=== PATIENT | male | born 1955 ===

== ENCOUNTER 2017-10-16 11:13 | Emergency (ER) | payer SELFPAY ==
[2017-10-16 11:28] VITALS: BP 167/102; PULSE 90; RESP 18; TEMP 98.6; O2SAT 99
== END 2017-10-16 12:18 | disposition left against medical advice (07) ==
LOC: H.ER 11:13
DX: Z02.89 Encounter for other administrative examinations (principal)

== ENCOUNTER 2017-10-16 16:18 | Emergency (ER) | payer OTHER ==
[2017-10-16 16:28] VITALS: TEMP 98.3
--- NOTE | 2017-10-16 17:35 | ED PDOC ---
Syncope/Near Syncope/Dizziness Time Seen by Provider: 10/16/17 16:38 Chief Complaint (Nursing): Dizziness/Lightheaded Chief Complaint (Provider): Dizziness/Lightheaded History Per: Patient History/Exam Limitations: no limitations Onset/Duration Of Symptoms: Days (x 21) Current Symptoms Are (Timing): Still Present Associated Symptoms Preceding Syncopal Episode: Vertigo Additional Complaint(s): 62 year old male presents to the ED complaining of dizziness, onset 21 days ago. Patient reports he feels like his body is spinning, almost like he is drunk and losses his balance. Patient states he would wake up with some days better than others. Patient reports he checked his blood pressure and realized it was high and took his friend's amlodipine medication with no relief. Denies headache, nausea, focal weakness, blurry vision. PMD: None Past Medical History Reviewed: Historical Data, Nursing Documentation, Vital Signs Vital Signs: Last Vital Signs Temp 98.3 F 10/16/17 16:26 Pulse 79 10/16/17 16:26 Resp 16 10/16/17 16:26 BP 180/97 H 10/16/17 16:26 Pulse Ox 99 10/16/17 16:26 - Medical History PMH: No Chronic Diseases - Surgical History Surgical History: No Surg Hx - Family History Family History: States: CAD, Hypertension - Social History Current smoker - smoking cessation education provided: No Alcohol: Social (heavy drinker on weekends) Drugs: Denies - Home Medications Home Medications: Ambulatory Orders Medication Instructions Recorded Atorvastatin [Lipitor] 20 mg PO DAILY #30 tab 10/16/17 Meclizine HCl 50 mg PO BID PRN #30 tablet 10/16/17 hydroCHLOROthiazide [Hydrodiuril] 25 mg PO DAILY #30 tab 10/16/17 - Allergies Allergies/Adverse Reactions: Allergies Allergy/AdvReac Type Severity Reaction Status Date / Time No Known Allergies Allergy Verified 10/16/17 11:26 Review of Systems ROS Statement: Except As Marked, All Systems Reviewed And Found Negative Eyes: Negative for: Vision Change Gastrointestinal: Negative for: Nausea Neurological: Positive for: Dizziness. Negative for: Weakness, Headache Physical Exam - Reviewed Nursing Documentation Reviewed: Yes Vital Signs Reviewed: Yes - Physical Exam Appears: Positive for: Non-toxic, No Acute Distress Head Exam: Positive for: ATRAUMATIC, NORMOCEPHALIC Skin: Positive for: Warm, Dry Eye Exam: Positive for: EOMI, PERRL. Negative for: Nystagmus ENT: Negative for: Pharyngeal Erythema, Tonsillar Exudate Neck: Positive for: Painless ROM, Supple Cardiovascular/Chest: Positive for: Regular Rate, Rhythm, Chest Non Tender. Negative for: Murmur Respiratory: Positive for: Normal Breath Sounds. Negative for: Wheezing Gastrointestinal/Abdominal: Positive for: Soft. Negative for: Tenderness Back: Positive for: Normal Inspection. Negative for: Decreased ROM Extremity: Positive for: Normal ROM. Negative for: Deformity Lymphatic: Negative for: Adenopathy Neurologic/Psych: Positive for: Alert, medical affairs manager II-XII (intact), Oriented (x 3), Cerebellar Tests (normal ), Other (Able to walk heel to toe in straight line, negative romberg). Negative for: Motor/Sensory Deficits - Laboratory Results Result Diagrams: 10/16/17 18:00 10/16/17 18:00 - ECG ECG Rhythm: Positive for: Normal QRS, Normal ST Segment, Sinus Rhythm (normal sinus at 64) O2 Sat by Pulse Oximetry: 99 (RA) Pulse Ox Interpretation: Normal Medical Decision Making Medical Decision Making: Initial Impression: Dizziness Differentials include but are not limited to BPPV, Cerebellar Ischemia, VBI, Electrolyte Abnormality, and Dehydration Time: 1657 Plan -- EKG -- Head CT w/o contrast Time: 1704 Plan: -- Alcohol Serum -- B-Type Natriuretic -- CMP -- Drug Screen -- Magnesium -- Phosphorus -- Thyroid -- Troponin -- ED Urine Dipstick -- CBC with differentials -- IV Insertion Time: 1731 Plan: -- Glucose, Blood, POC Accession No. : [id number] Patient Name / ID : KALI NUÑEZ / [id number] Exam Date : 10/16/2017 19:22:02 ( Approved ) Study Comment : Sex / Age : M / 62Y Creator : RONI ALARCON Dictator : Mutual Fund Sales Agent : Lead Burner Apprentice : RONI ALARCON Approver2 : Report Date : 10/16/2017 19:53:00 My Comment : [facility] Division of Radiology [address] [place] [address] Tel. no. Patient Name: SAVANNAH ENRIQUE Pt. Address: [address] [place] [address] Rec #: [id number] [place] [address]: Serge BELLO, Rocio Carter Pt Order Location: [facility] : 1955 Male Age: 62 Order #: [id number] Reason for exam: persistent dizziness CT Scan HEAD W/O CONTRAST Exam Date: 10/16/17 This imaging exam was performed at [facility] EXAM: CT Head Without Intravenous Contrast CLINICAL HISTORY: 62 years old, male; Signs and symptoms; Dizziness; Additional info: Persistent dizziness TECHNIQUE: Axial computed tomography images of the head/brain without intravenous contrast. All CT scans at this facility use one or more dose reduction techniques, viz.: automated exposure control; ma/kV adjustment per patient size (including targeted exams where dose is matched to indication; i.e. head); or iterative reconstruction technique. Coronal and sagittal reformatted images were created and reviewed. COMPARISON: No relevant prior studies available. FINDINGS: Brain: Unremarkable. No significant white matter disease. No edema. No intracranial mass, mass effect, or midline shift. Ventricles: Unremarkable. No ventriculomegaly. Bones/joints: Unremarkable. No acute fracture. Soft tissues: Unremarkable. Sinuses: Unremarkable as visualized. No acute sinusitis. Mastoid air cells: Unremarkable as visualized. No mastoid effusion. IMPRESSION: No acute intracranial abnormality. Dictated By: Roni Alarcon MD Dictated Date/Time: 10/16/171952 Signed By: Roni Alarcon MD Date Signed: 1950 Transcribed By: ANKITA Transcribe Date/Time : 10/16/171952 BRAULMD/AZAM 9p No emergently significant lab abnormalities. Feels better s/p meclizine. DW pt findings. Pt reports that he has concerns about his triglycerides because he has had it elevated in the past. Was on atorvastatin. Will rx this and hctz and pt to follow up at clinic without fail this week for reevaluation. Scribe Attestation: Documented by Michael Galicia, acting as a scribe for Dr. Rocio Valentine MD. Provider Scribe Attestation: All medical record entries made by the Scribe were at my direction and personally dictated by me. I have reviewed the chart and agree that the record accurately reflects my personal performance of the history, physical exam, medical decision making, and the department course for this patient. I have also personally directed, reviewed, and agree with the discharge instructions and disposition. Disposition - Clinical Impression Clinical Impression: Dizziness, Hypertension Counseled Patient/Family Regarding: Studies Performed, Diagnosis, Need For Followup, Rx Given - Disposition Referrals: [facility] [Outside] ([facility] ADEN FANY EN 1-2 STONE A CHEQAR DE NUO) Disposition: Routine/Home Disposition Time: 21:00 Condition: IMPROVED Prescriptions: Atorvastatin [Lipitor] 20 mg PO DAILY #30 tab hydroCHLOROthiazide [Hydrodiuril] 25 mg PO DAILY #30 tab Meclizine HCl 50 mg PO BID PRN #30 tablet PRN Reason: Dizziness Instructions: Controlling Your Blood Pressure Through Lifestyle, Vertigo (a Type of Dizziness) Print Language: GEORGIAN
[2017-10-16 18:10] LABS: BASO # 0.1 K/uL (0.0-0.2); BASO % 0.6 % (0.0-2.0); EOS % 0.2 % (0.0-4.0); HEMOGLOBIN 15.1 g/dL (12.0-18.0); LYMPH # 2.6 K/uL (1.0-4.3); LYMPH % 28.3 % (20.0-40.0); MEAN CELL VOLUME 92.4 fl (80.0-94.0); MEAN CORPUSCULAR HEMOGLOBIN 31.4 pg (27.0-31.0); MEAN PLATELET VOLUME 8.9 fl (7.2-11.7); MONO # 0.6 K/uL (0.0-0.8); MONO % 6.9 % (0.0-10.0); NEUT # 5.8 K/uL (1.8-7.0); NRBC % 0.2 % (0.0-0.0); RBC 4.81 Mil/uL (4.40-5.90); RED CELL DISTRIBUTION WIDTH 13.2 % (11.5-14.5); WHITE BLOOD COUNT 9.1 K/uL (4.8-10.8)
[2017-10-16 18:28] LABS: ALB/GLOB RATIO 1.3 (1.0-2.1); ALBUMIN 4.3 g/dL (3.5-5.0); ALT/SGPT 21 U/L (21-72); AST/SGOT 37 U/L (17-59); BLOOD UREA NITROGEN 9 mg/dl (9-20); CALCIUM 9.4 mg/dL (8.4-10.2); GFR AFRICAN-AMERICAN > 60; GFR NON-AFRICAN AMERICAN > 60
[2017-10-16 18:30] LABS: INR 0.9 (0.9-1.2); PARTIAL THROMBOPLASTIN TIME 33.2 Seconds (25.6-37.1); PROTHROMBIN TIME 10.3 Seconds (9.8-13.1)
[2017-10-16 18:39] LABS: BARBITURATES, UR NEGATIVE (NEGATIVE); BENZODIAZEPINES, UR NEGATIVE (NEGATIVE); OPIATES, UR NEGATIVE (NEGATIVE); PHENCYCLIDINE, UR NEGATIVE (NEGATIVE)
[2017-10-16 18:52] LABS: B-TYPE NATRIURETIC PEPTIDE 128 pg/ml (0-900)
--- NOTE | 2017-10-16 19:53 | CT ---
EXAM: CT Head Without Intravenous Contrast CLINICAL HISTORY: 62 years old, male; Signs and symptoms; Dizziness; Additional info: Persistent dizziness TECHNIQUE: Axial computed tomography images of the head/brain without intravenous contrast. All CT scans at this facility use one or more dose reduction techniques, viz.: automated exposure control; ma/kV adjustment per patient size (including targeted exams where dose is matched to indication; i.e. head); or iterative reconstruction technique. Coronal and sagittal reformatted images were created and reviewed. COMPARISON: No relevant prior studies available. FINDINGS: Brain: Unremarkable. No significant white matter disease. No edema. No intracranial mass, mass effect, or midline shift. Ventricles: Unremarkable. No ventriculomegaly. Bones/joints: Unremarkable. No acute fracture. Soft tissues: Unremarkable. Sinuses: Unremarkable as visualized. No acute sinusitis. Mastoid air cells: Unremarkable as visualized. No mastoid effusion. IMPRESSION: No acute intracranial abnormality.
[2017-10-16 21:14] VITALS: O2SAT 99
[2017-10-16 21:29] VITALS: BP 160/98; PULSE 74; RESP 16
--- NOTE | 2017-10-17 09:01 | CARD ---
APPROVED REPORT EKG Measurement Heart [id number] <Conclusion> Normal sinus rhythm Nonspecific T wave abnormality Abnormal ECG
== END 2017-10-16 21:31 | disposition home or self-care (01) ==
LOC: H.ER 16:18
DX: R42 Dizziness and giddiness (principal); I10 Essential (primary) hypertension; Z82.49 Family history of ischemic heart disease and other diseases of the circulatory system

== ENCOUNTER 2017-11-21 11:42 | Emergency (ER) | payer OTHER ==
[2017-11-21 11:54] VITALS: BMI 25.0
[2017-11-21 11:57] VITALS: O2SAT 99
--- NOTE | 2017-11-21 13:33 | CT ---
PROCEDURE: CT HEAD WITHOUT CONTRAST. HISTORY: dizziness COMPARISON: 10/16/2017 TECHNIQUE: Axial computed tomography images were obtained through the head/brain without intravenous contrast. Radiation dose: Total exam DLP = 850 mGy-cm. This CT exam was performed using one or more of the following dose reduction techniques: Automated exposure control, adjustment of the mA and/or kV according to patient size, and/or use of iterative reconstruction technique. FINDINGS: HEMORRHAGE: No intracranial hemorrhage. BRAIN: No mass effect or edema. No atrophy or chronic microvascular ischemic changes. VENTRICLES: Unremarkable. No hydrocephalus. CALVARIUM: Unremarkable. PARANASAL SINUSES: The approximately 1.6 cm left maxillary sinus superolateral soft tissue density compatible with a retention cyst and/or polyp is similar in appearance A sub cm right maxillary sinus retention cyst and/or polyp is noted on the current study is unclear if this was present before as more of the right maxillary sinus is included on the current study compared the prior MASTOID AIR CELLS: Unremarkable as visualized. No inflammatory changes. OTHER FINDINGS: None. IMPRESSION: No interval intra cerebral pathology suggested. No extra-axial collections. No hemorrhage or mass effect. The cerebellopontine angles and internal auditory canals appear similar in appearance.No gross mastoid effusions suggested. Bilateral benign-appearing antral retention cysts and/or polyps -as referenced above
[2017-11-21 13:43] LABS: BASO % 0.6 % (0.0-2.0); EOS % 0.5 % (0.0-4.0); HEMOGLOBIN 15.9 g/dL (12.0-18.0); LYMPH # 2.3 K/uL (1.0-4.3); LYMPH % 33.1 % (20.0-40.0); MEAN CELL VOLUME 91.6 fl (80.0-94.0); MEAN CORPUSCULAR HEMOGLOBIN 31.6 pg (27.0-31.0); MEAN CORPUSCULAR HGB CONC 34.5 g/dL (33.0-37.0); MEAN PLATELET VOLUME 8.6 fl (7.2-11.7); MONO # 0.5 K/uL (0.0-0.8); MONO % 7.1 % (0.0-10.0); NEUT # 4.1 K/uL (1.8-7.0); NEUT % 58.7 % (50.0-75.0); NRBC % 0.1 % (0.0-0.0); RBC 5.02 Mil/uL (4.40-5.90); RED CELL DISTRIBUTION WIDTH 14.2 % (11.5-14.5)
[2017-11-21 13:48] LABS: CALCIUM 9.8 mg/dL (8.4-10.2); GFR AFRICAN-AMERICAN > 60; GFR NON-AFRICAN AMERICAN > 60
[2017-11-21 14:08] LABS: BLOOD UREA NITROGEN 21 mg/dl (9-20)
--- NOTE | 2017-11-21 14:13 | ED PDOC ---
HPI: General Adult Time Seen by Provider: 11/21/17 12:26 Chief Complaint (Nursing): Dizziness/Lightheaded Chief Complaint (Provider): Dizziness History Per: Patient History/Exam Limitations: no limitations Onset/Duration Of Symptoms: Days (x3) Current Symptoms Are (Timing): Still Present Additional Complaint(s): 62 y/o male with a pmhx of HTN and high cholesterol, who presents to the ED complaining of dizziness x3 days. Patient describes his dizziness as a room spinning sensation that gets worse when walking. He states his dizziness is similar to an episode he had in the past and he states he presented to this facility, received medication, and felt better. He denies headache, fever, chest pain, shortness of breath, weakness, or numbness. Patient reports he currently feels better than previously. PMD: None provided Past Medical History Reviewed: Historical Data, Nursing Documentation, Vital Signs Vital Signs: Last Vital Signs Temp 97.6 F 11/21/17 11:55 Pulse 87 11/21/17 11:55 Resp 20 11/21/17 11:55 BP 129/83 11/21/17 11:55 Pulse Ox 99 11/21/17 14:50 - Medical History PMH: HTN, Hypercholesterolemia - Surgical History Surgical History: No Surg Hx - Family History Family History: States: CAD, Hypertension - Home Medications Home Medications: Ambulatory Orders Medication Instructions Recorded Atorvastatin [Lipitor] 20 mg PO DAILY #30 tab 10/16/17 hydroCHLOROthiazide [Hydrodiuril] 25 mg PO DAILY #30 tab 10/16/17 Meclizine HCl 50 mg PO BID PRN #30 tablet 11/21/17 - Allergies Allergies/Adverse Reactions: Allergies Allergy/AdvReac Type Severity Reaction Status Date / Time No Known Allergies Allergy Verified 11/21/17 12:07 Review of Systems ROS Statement: Except As Marked, All Systems Reviewed And Found Negative Constitutional: Negative for: Fever Cardiovascular: Negative for: Chest Pain Respiratory: Negative for: Shortness of Breath Neurological: Positive for: Dizziness. Negative for: Weakness, Numbness, Headache Physical Exam - Reviewed Nursing Documentation Reviewed: Yes Vital Signs Reviewed: Yes - Physical Exam Appears: Positive for: Non-toxic, No Acute Distress Head Exam: Positive for: ATRAUMATIC, NORMAL INSPECTION, NORMOCEPHALIC Skin: Positive for: Normal Color, Warm, Dry. Negative for: Rash Eye Exam: Positive for: EOMI, Normal appearance, PERRL ENT: Positive for: Normal ENT Inspection Neck: Positive for: Normal, Painless ROM, Supple Cardiovascular/Chest: Positive for: Regular Rate, Rhythm. Negative for: Murmur Respiratory: Positive for: Normal Breath Sounds. Negative for: Respiratory Distress Gastrointestinal/Abdominal: Positive for: Normal Exam, Soft. Negative for: Tenderness Back: Positive for: Normal Inspection. Negative for: L CVA Tenderness, R CVA Tenderness, Vertebral Tenderness Extremity: Positive for: Normal ROM. Negative for: Pedal Edema, Deformity Neurologic/Psych: Positive for: Alert, workforce services representative II-XII (intact), Oriented, Cerebellar Tests (normal), Gait (steady). Negative for: Motor/Sensory Deficits , Aphasia, Facial Droop - Laboratory Results Result Diagrams: 11/21/17 12:34 11/21/17 12:34 - ECG ECG: Positive for: Interpreted By Me, Viewed By Me ECG Rhythm: Positive for: Normal QRS, Normal ST Segment, Sinus Rhythm. Negative for: ST/T Changes Rate: 73 O2 Sat by Pulse Oximetry: 99 (RA) Pulse Ox Interpretation: Normal - Progress Re-evaluation Time: 14:49 Condition: Re-examined, Improved Medical Decision Making Medical Decision Makin:38 Initial Impression: Dizziness. Differential diagnoses include, but are not limited to peripheral vertigo vs. central vertigo (less likely given normal exam ) Plan: --CT head w/o contrast --EKG --BMP --Troponin I --CBC --Antivert 25mg PO --Reevaluation PROCEDURE: CT HEAD WITHOUT CONTRAST. HISTORY: dizziness COMPARISON: 10/16/2017 TECHNIQUE: Axial computed tomography images were obtained through the head/brain without intravenous contrast. Radiation dose: Total exam DLP = 850 mGy-cm. This CT exam was performed using one or more of the following dose reduction techniques: Automated exposure control, adjustment of the mA and/or kV according to patient size, and/or use of iterative reconstruction technique. FINDINGS: HEMORRHAGE: No intracranial hemorrhage. BRAIN: No mass effect or edema. No atrophy or chronic microvascular ischemic changes. VENTRICLES: Unremarkable. No hydrocephalus. CALVARIUM: Unremarkable. PARANASAL SINUSES: The approximately 1.6 cm left maxillary sinus superolateral soft tissue density compatible with a retention cyst and/or polyp is similar in appearance A sub cm right maxillary sinus retention cyst and/or polyp is noted on the current study is unclear if this was present before as more of the right maxillary sinus is included on the current study compared the prior MASTOID AIR CELLS: Unremarkable as visualized. No inflammatory changes. OTHER FINDINGS: None. IMPRESSION: No interval intra cerebral pathology suggested. No extra-axial collections. No hemorrhage or mass effect. The cerebellopontine angles and internal auditory canals appear similar in appearance.No gross mastoid effusions suggested. Bilateral benign-appearing antral retention cysts and/or polyps -as referenced above Scribe Attestation: Documented by Abdi Guillen, acting as a scribe for Hallie Gutiérrez MD. Provider Scribe Attestation: All medical record entries made by the Scribe were at my direction and personally dictated by me. I have reviewed the chart and agree that the record accurately reflects my personal performance of the history, physical exam, medical decision making, and the department course for this patient. I have also personally directed, reviewed, and agree with the discharge instructions and disposition. Disposition - Clinical Impression Clinical Impression: Dizziness - Patient ED Disposition Is Patient to be Admitted: No Doctor Will See Patient In The: Office Counseled Patient/Family Regarding: Studies Performed, Diagnosis - Disposition Referrals: [facility] [Outside] Disposition: Routine/Home Disposition Time: 14:49 Condition: GOOD Additional Instructions: Take your medications as instructed. Follow up with your PCP In 2-3 days. Prescriptions: Meclizine HCl 50 mg PO BID PRN #30 tablet PRN Reason: Dizziness Instructions: Vertigo (a Type of Dizziness) Print Language: BARBADIAN
[2017-11-21 15:08] VITALS: BP 130/69; PULSE 78; RESP 18; TEMP 97.8
--- NOTE | 2017-11-21 17:48 | CARD ---
APPROVED REPORT EKG Measurement Heart [id number] <Conclusion> Normal sinus rhythm Nonspecific T wave abnormality Abnormal ECG
== END 2017-11-21 15:05 | disposition home or self-care (01) ==
LOC: H.ER 11:42
DX: R42 Dizziness and giddiness (principal); I10 Essential (primary) hypertension; Z82.49 Family history of ischemic heart disease and other diseases of the circulatory system; E78.00 Pure hypercholesterolemia, unspecified